=== PATIENT | male | born 1980 | race Caucasian/White ===

== ENCOUNTER 2017-09-16 14:51 | Emergency (ER) | payer MEDICAID, OTHER ==
[~2017-09-16] VITALS: Ht 172.7 cm; Wt 66.7 kg
[2017-09-16 15:14] VITALS: BP 120/87
== END 2017-09-16 19:00 | disposition left against medical advice (07) ==
LOC: ER 14:54
DX: Z76.0 Encounter for issue of repeat prescription (principal); Z53.21 Procedure and treatment not carried out due to patient leaving prior to being seen by health care provider